=== PATIENT | female | born 1945 | race Caucasian/White ===

== ENCOUNTER 2020-01-26 14:38 | Inpatient (IN) | payer SELFPAY ==
[~2020-01-26] VITALS: Ht 157.5 cm; Wt 30.0 kg
[2020-01-26 15:37] LABS: BASOPHILS % (AUTO) 0.3 % (0-1); EOSINOPHILS % (AUTO) 0.5 % (0-6); HEMATOCRIT 36.1 % (35.0-45.0); LYMPHOCYTES # (AUTO) 0.6 X10'3 (1.1-4.8); MEAN CORPUSCULAR HEMOGLOBIN 30.7 PG (27.0-31.0); MEAN CORPUSCULAR HGB CONC 33.3 g/dL (33.0-36.5); MEAN CORPUSCULAR VOLUME 92.1 FL (78-98); MEAN PLATELET VOLUME 8.4 FL (7.4-10.4); MONOCYTES # (AUTO) 0.9 X10'3 (0-0.9); MONOCYTES % (AUTO) 13.3 % (2-12); NEUTROPHILS # (AUTO) 5.4 X10'3 (1.8-7.7); NEUTROPHILS % (AUTO) 76.9 % (42-75); PLATELET COUNT 227 X10'3 (140-440); RED BLOOD COUNT 3.92 X10'6 (4.20-5.60); RED CELL DISTRIBUTION WIDTH 15.6 % (11.5-14.5)
[2020-01-26 15:55] LABS: ALANINE AMINOTRANSFERASE 19 U/L (12-78); ALBUMIN 2.9 G/DL (3.4-5.0); ALKALINE PHOSPHATASE 106 IU/L (46-116); ANION GAP 13 (8-16); ASPARTATE AMINO TRANSFERASE 30 U/L (10-37); BILIRUBIN,TOTAL 0.4 MG/DL (0.1-1.0); BLOOD UREA NITROGEN 27 MG/DL (7-18); BUN/CREATININE RATIO 21.1 (6.6-38.0); CHLORIDE 105 MMOL/L (99-107); CREATININE 1.28 MG/DL (0.40-0.90); GLUCOSE 114 MG/DL (70-104); SODIUM 138 MMOL/L (135-145); TOTAL CARBON DIOXIDE 19.7 MMOL/L (24-32); TOTAL PROTEIN 5.9 G/DL (6.4-8.2); eGFR 41 ML/MIN
[2020-01-26 15:58] LABS: TROPONIN I < 0.04 NG/ML (0.0-0.05)
[2020-01-26 16:02] LABS: PLATELET ESTIMATE NORMAL; POTASSIUM 3.6 MMOL/L (3.5-5.1); TOTAL CELLS COUNTED 100
[2020-01-26] MEDS ORDERED: CefTRIAXone 2gm/D5W 50ml 50 ML IV ONE (16:45)
[2020-01-26] MEDS ORDERED: normal saline 1000ML IV soln IV ONE (16:45)
[2020-01-26] MEDS ORDERED: ACET-1059 PO (17:59)
[2020-01-26] MEDS ORDERED: AMIT100T61 PO (17:59)
[2020-01-26] MEDS ORDERED: DIPH25CA83 PO (17:59)
[2020-01-26] MEDS ORDERED: LEVO75TA PO (17:59)
[2020-01-26] MEDS ORDERED: ASPI-845 PO (17:59)
[2020-01-26] MEDS ORDERED: LORA-269 PO (17:59)
[2020-01-26] MEDS ORDERED: ALT5C PO (17:59)
[2020-01-26] MEDS ORDERED: CETI10TA18 PO (17:59)
[2020-01-26 18:26] LABS: CLARITY,URINE SLIGHTLY CLOUDY (Clear); COLOR,URINE YELLOW (Yellow); GLUCOSE, URINE NEGATIVE (Neg); KETONES,URINE 40 mg/dl (Neg); LEUKOCYTE ESTERASE ,URINE NEGATIVE (Neg); NITRITES, URINE NEGATIVE (Neg); OCCULT BLOOD,URINE NEGATIVE (Neg); PROTEIN,URINE 30 mg/dl (Neg)
[2020-01-26 18:36] LABS: UA COLLECTION TYPE FOLEY CATH
[2020-01-26 18:39] LABS: BACTERIA,URINE FEW /HPF (Neg); COARSE GRANULAR CAST 0-3 /LPF (NEGATIVE); RBC,URINE NONE SEEN /HPF (0-2); SQUAMOUS EPITHELIAL CELL,UR FEW /LPF (FEW); WBC,URINE 0-4 /HPF (0-4)
[2020-01-26] MEDS ORDERED: magnesium hydroxide 30ml (MOM) UD suspension PO PRN (20:05)
[2020-01-26] MEDS ORDERED: acetaminophen 325mg tablet PO PRN (20:05)
[2020-01-26] MEDS ORDERED: ondansetron/PF 4mg/2ml inj IV PRN (20:05)
[2020-01-26] MEDS ORDERED: LORazepam 1 MG tablet PO PRN (20:05)
[2020-01-26] MEDS ORDERED: ACETAMINOPHEN WITH CODEINE PO PRN (20:05)
[2020-01-26] MEDS ORDERED: mag hydrox/Alum hydrox/simeth 30ml oral suspension PO PRN (20:05)
[2020-01-26] MEDS: normal saline 1000ml 1,000 ML IV SCH (20:20)
[2020-01-26] MEDS ORDERED: ASPI-2 PO (20:47)
[2020-01-26 21:00] VITALS: BP 132/40
[2020-01-27] MEDS: normal saline 1000ml 1,000 ML IV SCH ×2 (03:11→16:01)
[2020-01-27 04:00] VITALS: BP 115/79
[2020-01-27 06:00] VITALS: BP 136/48
[2020-01-27 06:22] LABS: BASOPHILS % (AUTO) 0.5 % (0-1); EOSINOPHILS # (AUTO) 0.2 X10'3 (0-0.9); EOSINOPHILS % (AUTO) 2.4 % (0-6); HEMATOCRIT 34.6 % (35.0-45.0); HEMOGLOBIN 11.5 g/dl (12.0-16.0); LYMPHOCYTES % (AUTO) 22.5 % (21-51); MEAN CORPUSCULAR HEMOGLOBIN 30.5 PG (27.0-31.0); MEAN CORPUSCULAR HGB CONC 33.3 g/dL (33.0-36.5); MEAN CORPUSCULAR VOLUME 91.7 FL (78-98); MEAN PLATELET VOLUME 8.3 FL (7.4-10.4); MONOCYTES # (AUTO) 0.8 X10'3 (0-0.9); MONOCYTES % (AUTO) 9.2 % (2-12); NEUTROPHILS # (AUTO) 5.8 X10'3 (1.8-7.7); NEUTROPHILS % (AUTO) 65.4 % (42-75); PLATELET COUNT 276 X10'3 (140-440); RED BLOOD COUNT 3.78 X10'6 (4.20-5.60); RED CELL DISTRIBUTION WIDTH 15.3 % (11.5-14.5); WHITE BLOOD COUNT 8.9 X10'3 (4.5-11.0)
--- NOTE | 2020-01-27 06:39 | NUR ---
Problems reprioritized. Patient report given, questions answered & plan of care reviewed with Rona BURRELL.
[2020-01-27 06:45] LABS: ALANINE AMINOTRANSFERASE 12 U/L (12-78); ALBUMIN 2.5 G/DL (3.4-5.0); ALBUMIN/GLOBULIN RATIO 0.9 (1.1-1.5); ALKALINE PHOSPHATASE 78 IU/L (46-116); ANION GAP 9 (8-16); ASPARTATE AMINO TRANSFERASE 17 U/L (10-37); BILIRUBIN,TOTAL 0.2 MG/DL (0.1-1.0); BLOOD UREA NITROGEN 23 MG/DL (7-18); BUN/CREATININE RATIO 24.2 (6.6-38.0); CALCIUM 8.6 MG/DL (8.5-10.1); CHLORIDE 109 MMOL/L (99-107); CREATININE 0.95 MG/DL (0.40-0.90); GLUCOSE 66 MG/DL (70-104); POTASSIUM 3.2 MMOL/L (3.5-5.1); SODIUM 141 MMOL/L (135-145); TOTAL CARBON DIOXIDE 22.6 MMOL/L (24-32); TOTAL PROTEIN 5.3 G/DL (6.4-8.2); eGFR 57 ML/MIN
[2020-01-27] MEDS ORDERED: levoTHYROXINE 75mcg tablet PO SCH (07:30)
[2020-01-27] MEDS ORDERED: aspirin 325mg tablet PO SCH (08:00)
[2020-01-27] MEDS ORDERED: heparin, porcine 5000 units/ml vial SQ SCH (08:00)
[2020-01-27] MEDS ORDERED: CefTRIAXone/D5W-Rocephin 1gm 50 ML IV SCH (08:00)
[2020-01-27] MEDS ORDERED: magnesium 4gm in 100ml NS 100 ML IV PRN (09:25)
[2020-01-27] MEDS ORDERED: potassium CL 10mEq/100ml bag 100 ML IV PRN (09:25)
[2020-01-27] MEDS ORDERED: magnesium Cl slow-release 64mg tablet PO PRN (09:25)
[2020-01-27] MEDS ORDERED: potassium Cl 20 mEq SR tablet PO PRN ×2 (09:25)
[2020-01-27 10:00] VITALS: BP 136/48
[2020-01-27 10:12] LABS: TOTAL CELLS COUNTED 100
[2020-01-27 10:13] LABS: ANISOCYTOSIS FEW; BURR CELLS 2+; PLATELET ESTIMATE NORMAL
--- NOTE | 2020-01-27 11:00 | NUR ---
Phone call received from pt's daughter Arielle who informed that pt is confused and that Arielle is concerned about all the testing being done as pt does not have insurance here in the [place] (pt is from [place]). Arielle said it is OK to do a Teleneuro. consult as ordered by but would like to speak with admitting assigned to pt regarding further tests and plan of care. Conferred with pt's assigned as well as CHRISTIANO Leigh to speak with Arielle.
--- NOTE | 2020-01-27 16:25 | NUR ---
Pt's daughter Arielle called and said she will come and bead picker pt tonight and sign out AMA. She said the pt is to follow up with Dr. Yañez's office on Thursday with an appointment and he will eval pt neurologically then. She declined to have Teleneuro. consult here and any other interventions. Dr. Aguirre notified.
[2020-01-27 17:22] VITALS: BP 119/82
[2020-01-27] MEDS ORDERED: K and/or MAG REPLACEMENT MC SCH (20:00)
[2020-01-27] MEDS ORDERED: diatr meglu/diatrizoate 30ml oral sol.-(3 dose) bottle PO SCH (21:00)
== END 2020-01-27 16:54 | disposition left against medical advice (07) | DRG 316 ==
LOC: ER 14:39 → ED HOLD 20:01 → ORTHO 4S 21:04
PROVIDERS: ADMIT Internal Medicine; ATTEND Family Medicine
DX: I95.9 Hypotension, unspecified (principal); E03.9 Hypothyroidism, unspecified; F03.90 Unspecified dementia, unspecified severity, without behavioral disturbance, psychotic disturbance, mood disturbance, and anxiety; I10 Essential (primary) hypertension; Z53.29 Procedure and treatment not carried out because of patient's decision for other reasons; N28.9 Disorder of kidney and ureter, unspecified; D72.825 Bandemia; Z85.3 Personal history of malignant neoplasm of breast
CPT/HCPCS: 36415; 71045; 80053; 81001; 83605; 84145; 84484; 85007; 85025; 87040; 87081; 93005; 96365; 99285; G0378; J0696; J3480; J7030

== ENCOUNTER 2020-09-01 00:46 | Inpatient (IN) | payer SELFPAY ==
[2020-09-01] VITALS (20 sets, daily range): BP systolic 85–148; BP diastolic 51–69
[~2020-09-01] VITALS: Ht 147.3 cm; Wt 37.2 kg
[~2020-09-01 00:46] MED LIST: ACET-1059 PO; ALT5C PO; AMIT100T61 PO; ASPI-2 PO; CETI10TA18 PO; DIPH25CA83 PO; LEVO75TA PO; LORA-269 PO
[2020-09-01] MEDS ORDERED: normal saline 1000ml 1,000 ML IV ONE ×2 (01:10→03:10)
[2020-09-01] MEDS ORDERED: ondansetron 4mg rapidly disintigrating tab PO ONE (01:25)
[2020-09-01] MEDS ORDERED: fentaNYL/PF 50MCG/1 ML 2ML syringe IV ONE ×2 (02:20→03:30)
[2020-09-01] MEDS ORDERED: ondansetron/PF 4mg/2ml inj IV ONE (02:20)
[2020-09-01 02:35] LABS: ALANINE AMINOTRANSFERASE 30 U/L (12-78); ALBUMIN 3.4 G/DL (3.4-5.0); ALBUMIN/GLOBULIN RATIO 1.3 (1.1-1.5); ALKALINE PHOSPHATASE 144 IU/L (46-116); ANION GAP 17 (8-16); ASPARTATE AMINO TRANSFERASE 24 U/L (10-37); BILIRUBIN,TOTAL 0.8 MG/DL (0.1-1.0); BLOOD UREA NITROGEN 20 MG/DL (7-18); BUN/CREATININE RATIO 14.9 (6.6-38.0); CALCIUM 9.7 MG/DL (8.5-10.1); CHLORIDE 104 MMOL/L (99-107); CREATININE 1.34 MG/DL (0.40-0.90); GLUCOSE 218 MG/DL (70-104); SODIUM 144 MMOL/L (135-145); TOTAL CARBON DIOXIDE 23.3 MMOL/L (24-32); eGFR 39 ML/MIN
[2020-09-01 02:46] LABS: LIPASE 50 U/L (73-393)
[2020-09-01 02:57] LABS: BASOPHILS % (AUTO) 0.2 % (0-1); EOSINOPHILS % (AUTO) 0.8 % (0-6); HEMATOCRIT 44.8 % (35.0-45.0); HEMOGLOBIN 14.7 g/dl (12.0-16.0); LYMPHOCYTES # (AUTO) 0.8 X10'3 (1.1-4.8); LYMPHOCYTES % (AUTO) 36.1 % (21-51); MEAN CORPUSCULAR HEMOGLOBIN 30.7 PG (27.0-31.0); MEAN CORPUSCULAR HGB CONC 32.8 g/dL (33.0-36.5); MEAN CORPUSCULAR VOLUME 93.6 FL (78-98); MEAN PLATELET VOLUME 8.5 FL (7.4-10.4); MONOCYTES # (AUTO) 0.1 X10'3 (0-0.9); MONOCYTES % (AUTO) 6.1 % (2-12); NEUTROPHILS # (AUTO) 1.2 X10'3 (1.8-7.7); NEUTROPHILS % (AUTO) 56.8 % (42-75); PLATELET COUNT 448 X10'3 (140-440); RED BLOOD COUNT 4.79 X10'6 (4.20-5.60); RED CELL DISTRIBUTION WIDTH 14.1 % (11.5-14.5); WHITE BLOOD COUNT 2.1 X10'3 (4.5-11.0)
[2020-09-01] MEDS ORDERED: iohexol 300mg/ml 100ml inj. ONE (02:59)
[2020-09-01] MEDS ORDERED: piperacillin/tazo 4.5gm/100ml 100 ML IV SCH (03:32)
[2020-09-01] MEDS ORDERED: morphine 10mg/ml inj. IV ONE (04:00)
[2020-09-01 04:46] LABS: CLARITY,URINE CLEAR (Clear); COLOR,URINE AMBER (Yellow); GLUCOSE, URINE NEGATIVE (Neg); KETONES,URINE NEGATIVE (Neg); LEUKOCYTE ESTERASE ,URINE NEGATIVE (Neg); NITRITES, URINE NEGATIVE (Neg); OCCULT BLOOD,URINE NEGATIVE (Neg); PROTEIN,URINE TRACE mg/dl (Neg); UROBILINOGEN,URINE 0.2 E.U/dL (0.2-1.0)
[2020-09-01 04:48] LABS: UA COLLECTION TYPE FOLEY CATH
[2020-09-01 05:04] LABS: BACTERIA,URINE NONE SEEN /HPF (Neg); MUCUS STRANDS MANY /LPF (Neg); RBC,URINE 0-2 /HPF (0-2); SQUAMOUS EPITHELIAL CELL,UR FEW /LPF (FEW); WBC,URINE 0-4 /HPF (0-4)
[2020-09-01] MEDS ORDERED: albumin (Human) 5% 250ml 250 ML IV ONE ×4 (05:05→08:00)
--- NOTE | 2020-09-01 05:18 | NUR ---
Verbal consent received from Daughter who has Power of criminal attorney. signed consent form according to wishes of Daughter given via phone.
[2020-09-01] MEDS ORDERED: LIDOcaine 1% (10mg/ml) 2ml vial ONE (05:29)
[2020-09-01] MEDS ORDERED: sevoflurane 250ml liquid IH ONE (05:30)
[2020-09-01] MEDS ORDERED: NORepinephrine 8 MG in NS 250 ML BAG (32 mcg/ml) IV ONE (05:30)
[2020-09-01] MEDS ORDERED: fentaNYL/PF 50MCG/1 ML 2ML syringe ONE (05:46)
[2020-09-01 06:37] LABS: ANISOCYTOSIS FEW; PLATELET ESTIMATE INCREASED; POIKILOCYTOSIS FEW; TOTAL CELLS COUNTED 100
[2020-09-01] MEDS ORDERED: midazolam 1 mg/ML 2ml injection ONE (06:56)
[2020-09-01] MEDS ORDERED: ePHEDrine 50MG/ML INJ. ONE (06:58)
[2020-09-01] MEDS ORDERED: 0.9 % SODIUM CHLORIDE 10 ML VIAL ONE ×2 (06:58)
[2020-09-01] MEDS ORDERED: rocuronium 10mg/ml inj IV ONE ×2 (06:58)
[2020-09-01] MEDS ORDERED: propofol inj 20 ML IV ONE (06:58)
[2020-09-01] MEDS ORDERED: LIDOcaine 2% (20mg/ml) 5ml vial ONE (06:58)
[2020-09-01] MEDS ORDERED: phenylephrine 10mg/ml inj. ONE (06:58)
[2020-09-01] MEDS ORDERED: midazolam 1 mg/ML 2ml injection IV ONE (07:00)
[2020-09-01] MEDS ORDERED: midazolam 100mg in NS 100ml 100 ML IV PRN (07:00)
[2020-09-01] MEDS ORDERED: fentaNYL/PF 50MCG/1 ML 2ML syringe IV PRN (07:00)
[2020-09-01 07:11] LABS: ABG BASE EXCESS -12.5 mmol/L (-2.0-2.0); ABG HCO3 13.9 mmol/L (22.0-26.0); ABG OXYGEN SATURATION 98.9 % (94-97); ABG PCO2 (T) 33.3 mmHg (32.0-45.0); ABG PO2 (T) 251.2 mmHg (75.0-100.0); FCOHb 0.3 % (0.0-3.9); FMetHb 0.5 % (0.0-1.5); FO2Hb 98.1 % (94-97); PATIENT TEMPERATURE 36.7; TOTAL HEMOGLOBIN 10.2 G/dl (12.0-16.0)
[2020-09-01] MEDS ORDERED: sodium bicarbonate (8.4%) inj. 1 MEQ/ML ML ONE (07:19)
[2020-09-01] MEDS ORDERED: potassium CL 20mEq in D5-1/2NS 1,000 ML IV SCH (07:30)
[2020-09-01] MEDS ORDERED: ondansetron/PF 4mg/2ml inj IV PRN (07:30)
[2020-09-01] MEDS ORDERED: FENTANYL-0.9 % NACL/PF 100 ML IV PRN (07:35)
[2020-09-01] MEDS ORDERED: piperacillin/tazo 3.375gm/50ml 50 ML IV SCH (08:00)
[2020-09-01] MEDS ORDERED: potassium Cl 40MEQ/1/2NS 520ml 520 ML IV PRN ×2 (09:00)
[2020-09-01] MEDS: K, MAG and/or Phos replacement - Verify level? MC SCH (09:00)
[2020-09-01] MEDS ORDERED: potassium Cl 40MEQ/250ML bag 270 ML IV PRN ×2 (09:00)
[2020-09-01] MEDS ORDERED: potassium Cl 20 mEq SR tablet PO PRN ×2 (09:00)
[2020-09-01] MEDS ORDERED: normal saline 1000ml 1,000 ML IV SCH (09:30)
--- NOTE | 2020-09-01 09:30 | NUR ---
Dr. Ballard at bedside, Md notified of K+ 2.8, new order to repeat labs in 2 hours, also, new order for 1liter bolus of NS due to low BP.
[2020-09-01 09:41] LABS: BASOPHILS % (AUTO) 0.1 % (0-1); EOSINOPHILS % (AUTO) 1.3 % (0-6); HEMATOCRIT 38.8 % (35.0-45.0); HEMOGLOBIN 12.8 g/dl (12.0-16.0); LYMPHOCYTES # (AUTO) 0.7 X10'3 (1.1-4.8); LYMPHOCYTES % (AUTO) 47.6 % (21-51); MEAN CORPUSCULAR HEMOGLOBIN 30.5 PG (27.0-31.0); MEAN CORPUSCULAR VOLUME 92.3 FL (78-98); MEAN PLATELET VOLUME 8.2 FL (7.4-10.4); MONOCYTES % (AUTO) 3.6 % (2-12); NEUTROPHILS # (AUTO) 0.7 X10'3 (1.8-7.7); NEUTROPHILS % (AUTO) 47.4 % (42-75); PLATELET COUNT 302 X10'3 (140-440); RED CELL DISTRIBUTION WIDTH 14.2 % (11.5-14.5); WHITE BLOOD COUNT 1.4 X10'3 (4.5-11.0)
[2020-09-01 09:56] LABS: ALANINE AMINOTRANSFERASE 22 U/L (12-78); ALBUMIN 2.2 G/DL (3.4-5.0); ALBUMIN/GLOBULIN RATIO 1.3 (1.1-1.5); ALKALINE PHOSPHATASE 170 IU/L (46-116); ANION GAP 14 (8-16); ASPARTATE AMINO TRANSFERASE 36 U/L (10-37); BILIRUBIN,TOTAL 0.9 MG/DL (0.1-1.0); BLOOD UREA NITROGEN 23 MG/DL (7-18); BUN/CREATININE RATIO 23.7 (6.6-38.0); CHLORIDE 113 MMOL/L (99-107); CREATININE 0.97 MG/DL (0.40-0.90); GLUCOSE 228 MG/DL (70-104); SODIUM 148 MMOL/L (135-145); TOTAL CARBON DIOXIDE 20.6 MMOL/L (24-32); TOTAL PROTEIN 3.9 G/DL (6.4-8.2); eGFR 56 ML/MIN
[2020-09-01 10:08] LABS: CALCIUM 7.4 MG/DL (8.5-10.1); POTASSIUM 2.8 MMOL/L (3.5-5.1)
[2020-09-01] MEDS ORDERED: NORepinephrine inj. 8 MG in dextrose 5%-water 242 ML IV SCH (11:50)
[2020-09-01] MEDS ORDERED: NOREPINEPHRINE BITARTRATE/D5W 250 ML IV SCH (11:58)
[2020-09-01 13:00] LABS: BASOPHILS % (AUTO) 0.1 % (0-1); HEMOGLOBIN 12.5 g/dl (12.0-16.0); LYMPHOCYTES # (AUTO) 0.6 X10'3 (1.1-4.8); LYMPHOCYTES % (AUTO) 38.5 % (21-51); MEAN CORPUSCULAR HEMOGLOBIN 30.7 PG (27.0-31.0); MEAN CORPUSCULAR HGB CONC 32.9 g/dL (33.0-36.5); MEAN CORPUSCULAR VOLUME 93.4 FL (78-98); MEAN PLATELET VOLUME 8.5 FL (7.4-10.4); MONOCYTES # (AUTO) 0.1 X10'3 (0-0.9); MONOCYTES % (AUTO) 4.6 % (2-12); NEUTROPHILS # (AUTO) 0.8 X10'3 (1.8-7.7); NEUTROPHILS % (AUTO) 53.8 % (42-75); PLATELET COUNT 280 X10'3 (140-440); RED BLOOD COUNT 4.07 X10'6 (4.20-5.60); RED CELL DISTRIBUTION WIDTH 14.3 % (11.5-14.5); WHITE BLOOD COUNT 1.6 X10'3 (4.5-11.0)
[2020-09-01 13:42] LABS: ALANINE AMINOTRANSFERASE 27 U/L (12-78); ALBUMIN 1.7 G/DL (3.4-5.0); ALBUMIN/GLOBULIN RATIO 0.9 (1.1-1.5); ALKALINE PHOSPHATASE 152 IU/L (46-116); ANION GAP 14 (8-16); ASPARTATE AMINO TRANSFERASE 51 U/L (10-37); BILIRUBIN,TOTAL 0.6 MG/DL (0.1-1.0); BLOOD UREA NITROGEN 22 MG/DL (7-18); BUN/CREATININE RATIO 23.7 (6.6-38.0); CALCIUM 6.7 MG/DL (8.5-10.1); CHLORIDE 115 MMOL/L (99-107); CREATININE 0.93 MG/DL (0.40-0.90); GLUCOSE 338 MG/DL (70-104); POTASSIUM 4.6 MMOL/L (3.5-5.1); SODIUM 145 MMOL/L (135-145); TOTAL PROTEIN 3.5 G/DL (6.4-8.2); TROPONIN I 0.11 NG/ML (0.0-0.05); eGFR 59 ML/MIN
[2020-09-01] MEDS: morphine 2 MG/ML inj. syringe IV PRN ×3 (13:58→23:45)
[2020-09-01 14:40] LABS: MAGNESIUM 1.8 MG/DL (1.5-2.4); PHOSPHORUS 2.8 MG/DL (2.3-4.5)
[2020-09-01] MEDS ORDERED: dextrose 50%-water 50ml dispensing syringe IV PRN ×2 (14:55)
[2020-09-01] MEDS ORDERED: dextrose ORAL solution 15 GM/59 ML bottle PO PRN ×2 (14:55)
[2020-09-01] MEDS ORDERED: MESSAGE TO PHARMACY PO ONE (14:55)
[2020-09-01] MEDS ORDERED: insulin Lispro (HumaLOG) vial - multi-dose SQ SCH (14:55)
[2020-09-01] MEDS ORDERED: glucagon, human recombinant 1mg kit SUBCUT PRN (14:55)
--- NOTE | 2020-09-01 16:00 | NUR ---
Called and spoke with Dr. Ballard on telephone, new orders for Zosyn 3.375mgIV BID for positive blood cultures. Also, d/c D51/2NS and change to 1/2 NS at 125ml/hr
--- NOTE | 2020-09-01 16:05 | NUR ---
Called and spoke with Dr. Cordova to update on pt condition, MD notifed that pt had brown discharge, same color at output from NG tube come out of mouth. New order for JOHAN.
[2020-09-01] MEDS: sodium chloride 0.45% 1,000 ML IV SCH ×2 (16:19→23:57)
[2020-09-01] MEDS ORDERED: albumin (human) 25% 100 ML IV solution IV ONE (17:35)
[2020-09-01] MEDS: NORepinephrine 8mg/ 250ml NS 250 ML IV SCH ×2 (17:59→23:58)
[2020-09-01] MEDS: acetaminophen 1,000mg/100ml IV 100 ML IV PRN (19:36)
--- NOTE | 2020-09-01 20:40 | NUR ---
RN Note -Called Dr. Ji regarding fever and increased respirations. Orders received for Ofirmev and Precedex
[2020-09-01] MEDS: dexmedetomidine/D5W 100mL 100 ML IV SCH (20:58)
[2020-09-01] MEDS: piperacillin/tazo 3.375gm/50ml 50 ML IV SCH (20:58)
[2020-09-01] MEDS: insulin glargine (Lantus) pen - multi-dose SQ SCH (21:00)
[2020-09-01] MEDS: albumin (human) 25% 100 ML IV solution IV SCH (23:57)
[2020-09-02] VITALS (23 sets, daily range): BP systolic 90–133; BP diastolic 44–60
--- NOTE | 2020-09-02 | NUR ---
RN Note -Called Dr. Ji regarding critical CO2. Orders received for ABG
[2020-09-02] MEDS: hydrocortisone sod succ/PF 100mg/2ml inj. IV SCH ×3 (00:05→17:46)
[2020-09-02 00:10] LABS: HEMOGLOBIN 11.5 g/dl (12.0-16.0); RED CELL DISTRIBUTION WIDTH 14.5 % (11.5-14.5)
[2020-09-02 00:11] LABS: BASOPHILS % (AUTO) 0.2 % (0-1); EOSINOPHILS # (AUTO) 0.1 X10'3 (0-0.9); EOSINOPHILS % (AUTO) 7.3 % (0-6); HEMATOCRIT 34.2 % (35.0-45.0); LYMPHOCYTES # (AUTO) 0.8 X10'3 (1.1-4.8); LYMPHOCYTES % (AUTO) 40.1 % (21-51); MEAN CORPUSCULAR HEMOGLOBIN 30.8 PG (27.0-31.0); MEAN CORPUSCULAR HGB CONC 33.7 g/dL (33.0-36.5); MEAN CORPUSCULAR VOLUME 91.3 FL (78-98); MEAN PLATELET VOLUME 8.7 FL (7.4-10.4); MONOCYTES # (AUTO) 0.1 X10'3 (0-0.9); MONOCYTES % (AUTO) 2.8 % (2-12); NEUTROPHILS % (AUTO) 49.6 % (42-75); PLATELET COUNT 189 X10'3 (140-440); RED BLOOD COUNT 3.74 X10'6 (4.20-5.60)
[2020-09-02 00:15] LABS: ALANINE AMINOTRANSFERASE 40 U/L (12-78); ALKALINE PHOSPHATASE 176 IU/L (46-116); ANION GAP 18 (8-16); ASPARTATE AMINO TRANSFERASE 76 U/L (10-37); BLOOD UREA NITROGEN 25 MG/DL (7-18); BUN/CREATININE RATIO 21.2 (6.6-38.0); CALCIUM 7.5 MG/DL (8.5-10.1); CHLORIDE 112 MMOL/L (99-107); CREATININE 1.18 MG/DL (0.40-0.90); GLUCOSE 114 MG/DL (70-104); POTASSIUM 3.8 MMOL/L (3.5-5.1); SODIUM 142 MMOL/L (135-145); TOTAL PROTEIN 4.5 G/DL (6.4-8.2); TROPONIN I 0.31 NG/ML (0.0-0.05); eGFR 45 ML/MIN
[2020-09-02 00:17] LABS: TOTAL CARBON DIOXIDE 12.5 MMOL/L (24-32)
[2020-09-02 00:58] LABS: ABG BASE EXCESS -12.2 mmol/L (-2.0-2.0); ABG HCO3 11.3 mmol/L (22.0-26.0); ABG OXYGEN SATURATION 96.9 % (94-97); ABG PCO2 (T) 21.4 mmHg (32.0-45.0); ABG PO2 (T) 84.2 mmHg (75.0-100.0); ALLEN'S TEST POSITIVE; FCOHb 0.3 % (0.0-3.9); FMetHb 0.1 % (0.0-1.5); FO2Hb 96.5 % (94-97); PATIENT TEMPERATURE 37.8; PEEP 5 cm H2O; RESPIRATORY RATE 12 b/min; TIDAL VOLUME 350 mL; TOTAL HEMOGLOBIN 11.5 G/dl (12.0-16.0)
[2020-09-02] MEDS: sodium bicarbonate (8.4%) inj. 75 MEQ in dextrose 5% water 500ml 500 ML IV SCH ×4 (02:00→18:25)
[2020-09-02 03:27] LABS: TOTAL CELLS COUNTED 50
[2020-09-02 03:30] LABS: BURR CELLS 1+; PLATELET ESTIMATE DECREASED
[2020-09-02 03:57] LABS: EOSINOPHILS # (AUTO) 0.1 X10'3 (0-0.9); LYMPHOCYTES # (AUTO) 0.5 X10'3 (1.1-4.8)
[2020-09-02 03:59] LABS: BASOPHILS % (AUTO) 0.1 % (0-1); EOSINOPHILS % (AUTO) 7.3 % (0-6); HEMATOCRIT 32.4 % (35.0-45.0); HEMOGLOBIN 10.9 g/dl (12.0-16.0); LYMPHOCYTES % (AUTO) 31.9 % (21-51); MEAN CORPUSCULAR HEMOGLOBIN 31.1 PG (27.0-31.0); MEAN CORPUSCULAR HGB CONC 33.8 g/dL (33.0-36.5); MEAN PLATELET VOLUME 8.4 FL (7.4-10.4); MONOCYTES % (AUTO) 2.4 % (2-12); NEUTROPHILS % (AUTO) 58.3 % (42-75); PLATELET COUNT 152 X10'3 (140-440); RED BLOOD COUNT 3.52 X10'6 (4.20-5.60); RED CELL DISTRIBUTION WIDTH 14.5 % (11.5-14.5); WHITE BLOOD COUNT 1.6 X10'3 (4.5-11.0)
[2020-09-02 04:06] LABS: ALBUMIN 3.2 G/DL (3.4-5.0); ANION GAP 17 (8-16); BLOOD UREA NITROGEN 26 MG/DL (7-18); BUN/CREATININE RATIO 22.4 (6.6-38.0); CALCIUM 7.2 MG/DL (8.5-10.1); CHLORIDE 110 MMOL/L (99-107); CREATININE 1.16 MG/DL (0.40-0.90); GLUCOSE 142 MG/DL (70-104); POTASSIUM 3.8 MMOL/L (3.5-5.1); SODIUM 142 MMOL/L (135-145); eGFR 46 ML/MIN
[2020-09-02 04:08] LABS: TOTAL CARBON DIOXIDE 14.8 MMOL/L (24-32)
[2020-09-02 04:23] LABS: ABG BASE EXCESS -9.8 mmol/L (-2.0-2.0); ABG HCO3 12.6 mmol/L (22.0-26.0); ABG OXYGEN SATURATION 97.6 % (94-97); ABG PCO2 (T) 20.3 mmHg (32.0-45.0); ABG PO2 (T) 93.1 mmHg (75.0-100.0); FCOHb 0.2 % (0.0-3.9); FMetHb 0.1 % (0.0-1.5); FO2Hb 97.3 % (94-97); PATIENT TEMPERATURE 37.7; PEEP 5 cm H2O; RESPIRATORY RATE 12 b/min; TIDAL VOLUME 350 mL; TOTAL HEMOGLOBIN 11.2 G/dl (12.0-16.0)
[2020-09-02] MEDS: acetaminophen 1,000mg/100ml IV 100 ML IV PRN (05:49)
[2020-09-02] MEDS: albumin (human) 25% 100 ML IV solution IV SCH ×2 (05:49→09:11)
[2020-09-02] MEDS: morphine 2 MG/ML inj. syringe IV PRN ×2 (06:14→17:45)
--- NOTE | 2020-09-02 06:30 | NUR ---
Patient in room ICU 2045. I have received report from ASHANTI Dickson and had the opportunity to ask questions and assume patient care.
[2020-09-02 07:04] LABS: PLATELET ESTIMATE NORMAL; TOTAL CELLS COUNTED 100
[2020-09-02 07:05] LABS: BURR CELLS 3+
[2020-09-02] MEDS: K, MAG and/or Phos replacement - Verify level? MC SCH (08:00)
[2020-09-02] MEDS: pantoprazole 40 MG vial IV SCH (08:11)
[2020-09-02] MEDS: piperacillin/tazo 3.375gm/50ml 50 ML IV SCH ×2 (08:11→20:30)
[2020-09-02] MEDS: mineral oil/petrolatum ophthal oint EACHEYE SCH ×3 (08:12→20:30)
--- NOTE | 2020-09-02 10:12 | NUR ---
Waldo/Malnutrition Consults: Pt intubated post-op admit DX ,HTN, hypothyroidism, and sepsis r/t perforated viscus s/p ex lap sigmoid colectomy and colostomy placement per EMR. Waldo 12 w/ skin intact outside new surgical site per EMR. 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 Pt current BMI 15.3 however pending scaled wt at this time. Pt prior admit 2020 30kg via gurney scale, appears thin and well-nourished per MD notes, and no edema present per EMR. RD visit pt at bedside; appears small-framed and thin though no overt signs of muscle/fat wasting and likely maintains stable low wt status. Current severe weakness only criteria for malnutrition though pt is intubated post-op so likely to impact strength status; does not meet minimum malnutrition criteria at this time. Pt remains NPO MAP 68 this AM w/ NG in place ans colostomy 600ml output thus far today per EMR. Relistor to start 4/5 per EMR. Will continue to monitor for nutrition support needs if prolonged intubation. Rec: 1. IF functional colostomy and prolonged intubation; consider TF to meet nutrition needs using Vital AF at 35ml/hr goal. 2. IF TF; additional water flush 100ml Q4 3. IF TF; PALB Q /; daily wts 4. routine bowel care; opioid antagonist per MD 5. upon extubation; advance diet as medically indicated to low-residue following GRAPHIC MANAGER BSS Addendum: 09/02/20 at [address] Amended: Links added.
[2020-09-02] MEDS ORDERED: ACET-1059 PO (11:20)
[2020-09-02] MEDS ORDERED: MELO7.5T12 PO (11:38)
[2020-09-02] MEDS ORDERED: LORA-268 PO (11:38)
--- NOTE | 2020-09-02 12:49 | NUR ---
TPN Consult: TPN to start today per MD post-op. PN recs below; will monitor for tolerance. Unable to meet protein needs without overloading on DEX given high DEX formulary and pt underweight status. IF GI intact and functional gut consider transition to EN as medically indicated to maintain gut integrity post-op. Rec: 1. TPN per MD; via central access using 2:1 Clinimix E 5/20 1L bag at 43ml/hr goal. Separate lipid infusions to run 12 hours each day using 100ml 20% intralipids at 8.33ml/hr. 2. Given low TPN goal rate, initiate TPN at 43ml/hr goal. In total; to provide 1032ml volume, 52g AA, 206g DEX (3.85 mg/kg/min), and 1108 total kcals. 3. TG/PALB Q /; daily wts 4. monitor for PN tolerance 5. IF functional colostomy and prolonged intubation; consider TF to meet nutrition needs using Vital AF at 35ml/hr goal. 6. IF TF; additional water flush 100ml Q4 7. routine bowel care; opioid antagonist per MD 8. upon extubation; advance diet as medically indicated to low-residue following MULTIMEDIA DESIGNER BSS Addendum: 09/02/20 at [address] Amended: Links added. Addendum: 09/02/20 at [address] CORRECTION: *Initiate TPN at 30ml/hr and advance Q12 to goal as tolerated. In total; to provide 1032ml volume, 52g AA, 206g DEX (3.85 mg/kg/min), and 1108 total kcals.
[2020-09-02] MEDS: dexmedetomidine/D5W 100mL 100 ML IV SCH (14:22)
[2020-09-02 15:46] LABS: OXYGEN SATURATION (MIXED VEN) 68.9 % (60-80); PO2 MIXED VENOUS (TEMP COR) 31.4 mmHg (35-46)
[2020-09-02 15:54] LABS: ABG BASE EXCESS -6.8 mmol/L (-2.0-2.0); ABG OXYGEN SATURATION 97.3 % (94-97); ABG PCO2 (T) 15.1 mmHg (32.0-45.0); ABG PO2 (T) 85.4 mmHg (75.0-100.0); FCOHb 0.3 % (0.0-3.9); FMetHb 0.3 % (0.0-1.5); FO2Hb 96.7 % (94-97); PATIENT TEMPERATURE 37.6; PEEP 5 cm H2O; RESPIRATORY RATE 12 b/min; TIDAL VOLUME 350 mL; TOTAL HEMOGLOBIN 11.1 G/dl (12.0-16.0)
[2020-09-02 17:04] LABS: EOSINOPHILS # (AUTO) 0.1 X10'3 (0-0.9); LYMPHOCYTES # (AUTO) 0.3 X10'3 (1.1-4.8); MEAN CORPUSCULAR HEMOGLOBIN 30.5 PG (27.0-31.0); NEUTROPHILS # (AUTO) 0.8 X10'3 (1.8-7.7); WHITE BLOOD COUNT 1.2 X10'3 (4.5-11.0)
[2020-09-02 17:06] LABS: BASOPHILS % (AUTO) 0.1 % (0-1); EOSINOPHILS % (AUTO) 5.7 % (0-6); HEMOGLOBIN 10.9 g/dl (12.0-16.0); LYMPHOCYTES % (AUTO) 26.3 % (21-51); MEAN CORPUSCULAR VOLUME 89.9 FL (78-98); MEAN PLATELET VOLUME 8.8 FL (7.4-10.4); MONOCYTES % (AUTO) 2.2 % (2-12); NEUTROPHILS % (AUTO) 65.7 % (42-75); PLATELET COUNT 92 X10'3 (140-440); RED BLOOD COUNT 3.56 X10'6 (4.20-5.60); RED CELL DISTRIBUTION WIDTH 14.6 % (11.5-14.5)
[2020-09-02 17:15] LABS: ALANINE AMINOTRANSFERASE 55 U/L (12-78); ALBUMIN 2.8 G/DL (3.4-5.0); ALBUMIN/GLOBULIN RATIO 1.9 (1.1-1.5); ALKALINE PHOSPHATASE 176 IU/L (46-116); ANION GAP 20 (8-16); ASPARTATE AMINO TRANSFERASE 118 U/L (10-37); BILIRUBIN,TOTAL 1.7 MG/DL (0.1-1.0); BLOOD UREA NITROGEN 28 MG/DL (7-18); BUN/CREATININE RATIO 19.3 (6.6-38.0); CHLORIDE 106 MMOL/L (99-107); CREATININE 1.45 MG/DL (0.40-0.90); GLUCOSE 157 MG/DL (70-104); MAGNESIUM 1.6 MG/DL (1.5-2.4); PHOSPHORUS 2.9 MG/DL (2.3-4.5); POTASSIUM 3.4 MMOL/L (3.5-5.1); SODIUM 142 MMOL/L (135-145); TOTAL CARBON DIOXIDE 16.2 MMOL/L (24-32); TOTAL PROTEIN 4.3 G/DL (6.4-8.2); eGFR 35 ML/MIN
[2020-09-02] MEDS: albumin (human) 25% 100ml IV 100 ML IV SCH ×2 (17:48→20:29)
--- NOTE | 2020-09-02 18:23 | NUR ---
Problems reprioritized. Patient report given, questions answered & plan of care reviewed with ASHANTI Rasmussen.
--- NOTE | 2020-09-02 18:25 | NUR ---
Patient in room ICU 2045. I have received report from ASHANTI Sepulveda and had the opportunity to ask questions and assume patient care. Patient is intubated and Precedex is infusing, her eyes are open, but she is non-responsive. Upon turning her BP increases and she seems like she is in pain, I will call head of digital and request Fentanyl gtt.
--- NOTE | 2020-09-02 18:45 | NUR ---
Left msg for Dr. Zhao to call, Patient's Lactic is 7.6 and she appears to be in pain.
--- NOTE | 2020-09-02 19:18 | NUR ---
Dr. Zhao cld he will order Fentanyl 50mg Q3hr, he is not concerned about Lactic as long as BP in WNL
[2020-09-02] MEDS: fentaNYL/PF 50MCG/1 ML 2ML syringe IV PRN (19:35)
[2020-09-02] MEDS ORDERED: heparin, porcine 5000 units/ml vial SQ SCH (20:00)
--- NOTE | 2020-09-02 20:30 | NUR ---
report received from Isa BURRELL, assumed care of pt. pt resting in bed eyes open does not follow commands, assessment complete
[2020-09-02] MEDS ORDERED: fat emulsion 20% inj. 100 ML IV SCH (21:00)
[2020-09-02] MEDS: insulin glargine (Lantus) pen - multi-dose SQ SCH (21:00)
[2020-09-02] MEDS ORDERED: ZINC/COPPER/MANGANESE/SELENIUM 1 ML, chromic chloride inj. 10 MCG in AA 5%/CALCIUM/LYTE... IV SCH (21:00)
[2020-09-02] MEDS ORDERED: Dextrose 10%-water IV solution 1,000 ML IV PRN (21:00)
[2020-09-03] VITALS (14 sets, daily range): BP systolic 94–154; BP diastolic 36–68
[2020-09-03] MEDS: sodium bicarbonate (8.4%) inj. 75 MEQ in dextrose 5% water 500ml 500 ML IV SCH ×2 (00:10→04:28)
[2020-09-03] MEDS: hydrocortisone sod succ/PF 100mg/2ml inj. IV SCH ×2 (00:31→09:57)
--- NOTE | 2020-09-03 01:00 | NUR ---
no changes noted, pt continues to be lightly mottled around the knees, respitory rate remains elivated even after pain medication administered.
[2020-09-03] MEDS: albumin (human) 25% 100ml IV 100 ML IV SCH ×2 (01:52→09:44)
[2020-09-03] MEDS: mineral oil/petrolatum ophthal oint EACHEYE SCH ×2 (01:52→08:00)
[2020-09-03] MEDS: fentaNYL/PF 50MCG/1 ML 2ML syringe IV PRN (02:27)
[2020-09-03 03:31] LABS: ALANINE AMINOTRANSFERASE 50 U/L (12-78); ALBUMIN 4.2 G/DL (3.4-5.0); ALBUMIN/GLOBULIN RATIO 3.2 (1.1-1.5); ALKALINE PHOSPHATASE 109 IU/L (46-116); ANION GAP 24 (8-16); ASPARTATE AMINO TRANSFERASE 103 U/L (10-37); BILIRUBIN,TOTAL 1.9 MG/DL (0.1-1.0); BLOOD UREA NITROGEN 29 MG/DL (7-18); CALCIUM 7.2 MG/DL (8.5-10.1); CHLORIDE 102 MMOL/L (99-107); CREATININE 1.53 MG/DL (0.40-0.90); MAGNESIUM 1.7 MG/DL (1.5-2.4); PHOSPHORUS 2.7 MG/DL (2.3-4.5); SODIUM 143 MMOL/L (135-145); TOTAL CARBON DIOXIDE 17.5 MMOL/L (24-32); TOTAL PROTEIN 5.5 G/DL (6.4-8.2); eGFR 33 ML/MIN
[2020-09-03 03:32] LABS: GLUCOSE 197 MG/DL (70-104)
[2020-09-03 03:37] LABS: BASOPHILS % (AUTO) 0.1 % (0-1); HEMOGLOBIN 8.4 g/dl (12.0-16.0); LYMPHOCYTES # (AUTO) 0.1 X10'3 (1.1-4.8); NEUTROPHILS # (AUTO) 0.6 X10'3 (1.8-7.7)
[2020-09-03 03:39] LABS: EOSINOPHILS # (AUTO) 0.1 X10'3 (0-0.9); EOSINOPHILS % (AUTO) 7.3 % (0-6); HEMATOCRIT 23.6 % (35.0-45.0); LYMPHOCYTES % (AUTO) 18.6 % (21-51); MEAN CORPUSCULAR HEMOGLOBIN 32.1 PG (27.0-31.0); MEAN CORPUSCULAR HGB CONC 35.5 g/dL (33.0-36.5); MEAN CORPUSCULAR VOLUME 90.4 FL (78-98); MONOCYTES % (AUTO) 1.6 % (2-12); NEUTROPHILS % (AUTO) 72.4 % (42-75); RED BLOOD COUNT 2.61 X10'6 (4.20-5.60); RED CELL DISTRIBUTION WIDTH 13.9 % (11.5-14.5)
[2020-09-03 03:41] LABS: ABG BASE EXCESS -7.1 mmol/L (-2.0-2.0); ABG HCO3 13.7 mmol/L (22.0-26.0); ABG PCO2 (T) 16.7 mmHg (32.0-45.0); ABG PO2 (T) 83.2 mmHg (75.0-100.0); ALLEN'S TEST POSITIVE; FCOHb 0.1 % (0.0-3.9); FMetHb 0.1 % (0.0-1.5); FO2Hb 95.8 % (94-97); PATIENT TEMPERATURE 38.4; PEEP 5 cm H2O; RESPIRATORY RATE 14 b/min; TIDAL VOLUME 350 mL; TOTAL HEMOGLOBIN 8.3 G/dl (12.0-16.0)
[2020-09-03] MEDS ORDERED: acetaminophen 1,000mg/100ml IV 100 ML IV PRN (03:55)
[2020-09-03] MEDS: potassium Cl 20mEq/100mL bag 100 ML IV SCH ×4 (03:59→09:43)
--- NOTE | 2020-09-03 05:33 | NUR ---
[address] Zhao pts elevated LA, abg and over all condition, tylonal IV ordered for elevated temp, no further orders
[2020-09-03 05:56] LABS: PLATELET COUNT 49 X10'3 (140-440)
--- NOTE | 2020-09-03 06:08 | NUR ---
report luis m zambrano rn plan of care reviewed
[2020-09-03 07:40] LABS: PREALBUMIN 12.1 MG/DL (19-36); TRIGLYCERIDES 344 MG/DL (20-135)
[2020-09-03] MEDS ORDERED: methylnaltrexone br 12mg/0.6ml inj***SubQ only SQ SCH (08:00)
[2020-09-03] MEDS ORDERED: MVI, adult No.4 with vit. K 10 ML in dextrose 5% water 500ml 500 ML IV SCH ×2 (08:00)
[2020-09-03] MEDS ORDERED: Dextrose 10%-water IV solution 1,000 ML IV PRN (08:26)
[2020-09-03] MEDS ORDERED: fat emulsion 20% inj. 100 ML IV SCH (08:36)
[2020-09-03] MEDS ORDERED: TBO-filgrastim 480 MCG/0.8ml syringe SQ ONE (08:40)
[2020-09-03] MEDS ORDERED: insulin regular, human U-100 3ml vial - multi-dose SQ SCH ×2 (09:42→10:00)
[2020-09-03] MEDS: dexmedetomidine/D5W 100mL 100 ML IV SCH (09:43)
[2020-09-03] MEDS: pantoprazole 40 MG vial IV SCH (09:57)
[2020-09-03] MEDS: piperacillin/tazo 3.375gm/50ml 50 ML IV SCH (09:57)
[2020-09-03] MEDS ORDERED: fluconazole-Diflucan 200mg/NS 100 ML IV SCH (11:04)
[2020-09-03] MEDS ORDERED: vancomycin/NS 1 GM ADD-VANTAGE 250 ML IV PRN (11:20)
--- NOTE | 2020-09-03 11:30 | NUR ---
DURING 1100 ORAL CARE PATIENT BIT DOWN ON BITE BLOCK 3 TEETH FELL OUT, BUSINESS SYSTEM MANAGER NOTIFIED PICTURE TAKEN TEETH IN HAZ BAG IN CHART
[2020-09-03 11:33] LABS: WHITE BLOOD COUNT 0.8 X10'3 (4.5-11.0)
[2020-09-03] MEDS ORDERED: FENTANYL-0.9 % NACL/PF 100 ML IV PRN (12:10)
[2020-09-03 13:44] LABS: ISTAT ANION GAP 14 (8-12); ISTAT BUN 18 mg/dL (7-18); ISTAT CL 112 mmol/L (99-107); ISTAT CREATININE 0.4 mg/dL (0.6-1.1); ISTAT GLUCOSE 178 mg/dL (70-105); ISTAT HGB 8.2 g/dl (12.0-16.0); ISTAT Hct 24 %PCV (35-48); ISTAT IONIZED CALCIUM 1.14 mmol/L (1.03-1.32); ISTAT K 2.8 mmol/L (3.5-5.1); ISTAT NA 142 mmol/L (135-145); ISTAT TOTAL CO2 16 mmol/L (24-32); ISTAT eGFR > 90 ML/MIN
[2020-09-03] MEDS ORDERED: LORazepam 2 mg/ml vial IV PRN (13:50)
[2020-09-03] MEDS ORDERED: morphine 10mg/ml inj. IV PRN (13:50)
--- NOTE | 2020-09-03 14:59 | NUR ---
extubated to comfort care ar 0417
--- NOTE | 2020-09-03 15:15 | NUR ---
RN IS TO DOCUMENT YES TO ALL APPLICABLE AREAS Pronouncement of : 1. Time Physician Notified: 2. Date of :09/03/2120 3. Time of : 1524 4. DNR/Withdraw life support documented:yes 5. Monitor strip has been placed on chart:yes 6. Assessment process is of one-minute duration and includes following criteria: a) Patient is unresponsive to all stimuli: yes b) Pupils fixed and non-reactive:yes c) Auscultation of precordium reveals absence of heart tones:yes d) Auscultation of lungs reveals absence of breath sounds:yes e) Absence of blood pressure / all vital signs:yes f) QRS complexes are not present on monitor / EKG strip:yes g) Pacer spikes without capture:n/a 4. Comments:family at bedside
[2020-09-03] MEDS ORDERED: amitriptyline 50mg tablet PO SCH (21:00)
[2020-09-04] MEDS ORDERED: VANCOMYCIN LEVEL IV SCH (03:00)
[2020-09-04] MEDS ORDERED: loratadine 10mg tablet PO SCH (08:00)
[2020-09-04] MEDS ORDERED: levoTHYROXINE 75mcg tablet PO SCH (08:00)
[2020-09-06] MEDS ORDERED: MVI, adult No.4 with vit. K 10 ML in dextrose 5% water 500ml 500 ML IV SCH ×2 (08:00)
== END 2020-09-03 18:34 | disposition expired | DRG 853 ==
LOC: ER 00:46 → ICU 2S 08:05
PROVIDERS: ADMIT Internal Medicine Critical Care Medicine; ATTEND Internal Medicine Critical Care Medicine
PROC: 0D1N0Z4 Bypass Sigmoid Colon to Cutaneous, Open Approach (ICD-10-PCS; 2020-09-01)
PROC: 5A1945Z Respiratory Ventilation, 24-96 Consecutive Hours (ICD-10-PCS; 2020-09-01)
PROC: 0BH17EZ Insertion of Endotracheal Airway into Trachea, Via Natural or Artificial Opening (ICD-10-PCS; 2020-09-01)
PROC: BW211ZZ Computerized Tomography (CT Scan) of Abdomen and Pelvis using Low Osmolar Contrast (ICD-10-PCS; 2020-09-01)
PROC: 0DTN0ZZ Resection of Sigmoid Colon, Open Approach (ICD-10-PCS; principal; 2020-09-01 05:30)
DX: A41.9 Sepsis, unspecified organism (principal); R65.21 Severe sepsis with septic shock; J96.00 Acute respiratory failure, unspecified whether with hypoxia or hypercapnia; D61.818 Other pancytopenia; E87.0 Hyperosmolality and hypernatremia; E87.2 Acidosis; K57.80 Diverticulitis of intestine, part unspecified, with perforation and abscess without bleeding; N17.9 Acute kidney failure, unspecified; E03.9 Hypothyroidism, unspecified; E87.6 Hypokalemia; E87.8 Other disorders of electrolyte and fluid balance, not elsewhere classified; F03.90 Unspecified dementia, unspecified severity, without behavioral disturbance, psychotic disturbance, mood disturbance, and anxiety; F32.9 Major depressive disorder, single episode, unspecified; F41.9 Anxiety disorder, unspecified; G89.29 Other chronic pain; I10 Essential (primary) hypertension; K59.00 Constipation, unspecified; Z20.822 Contact with and (suspected) exposure to COVID-19; M54.5 Low back pain; Z51.5 Encounter for palliative care; Z66 Do not resuscitate; Z85.3 Personal history of malignant neoplasm of breast; Z90.10 Acquired absence of unspecified breast and nipple
CPT/HCPCS: 96374; 96375; 99285; Z7506; Z7508; 36415; 36600; 71045; 74018; 74177; 80047; 80048; 80053; 81001; 82803; 82810; 82948; 83605; 83690; 83735; 84100; 84134; 84439; 84443; 84478; 84484; 85007; 85018; 85025; 86885; 86900; 86901; 87040; 87070; 87077; 87081; 87186; 87635; 93005; 94002; 94003; 94760; A4421; A4618; A6253; A6258; A6446; A7000; C9113; C9803; G0378; J0131; J1442; J1450; J1644; J1720; J1815; J2001; J2212; J2250; J2270; J2370; J2405; J2543; J2704; J3010; J3480; J7030; J7040; J7060; J7120; P9045; P9047; Q9967